=== PATIENT | male | born 1985 | race African-American/Black ===

== ENCOUNTER 2019-01-27 12:14 | Emergency (ER) | payer SELFPAY ==
[~2019-01-27] VITALS: Ht 175.3 cm; Wt 72.6 kg
[2019-01-27 12:54] VITALS: BP 138/79
--- NOTE | 2019-01-27 13:15 | PHYS DOC ---
Past Medical History Past Medical History: No Pertinent History Past Surgical History: Other Additional Past Surgical Histo: JAW SURGERY Alcohol Use: Occasionally Drug Use: Cocaine, Marijuana Adult General Chief Complaint Chief Complaint: SEXUALLY TRANSMITTED DISEASE HPI HPI Patient is a 33 year old AA laith who presents to the emergency department with complaints of dysuria and abnormal green discharge from his penis for the last week. Patient reports concern about possible sexually transmitted infection. He also states he has had a cough with green sputum and nasal congestion for about the last week. He denies any fever, shortness of breath, wheezing, ear pain, nausea, vomiting, diarrhea, rash, or headache. Patient states that his throat has felt sore at times, he denies any difficulty swallowing. He currently rates the discomfort in his penis as 8 out of 10 on the pain scale after urinating he describes it as burning. All other ROS is neg unless otherwise noted in HPI. Review of Systems Review of Systems See Above Allergies Allergies Allergies Coded Allergies Type Severity Reaction Last Updated Verified No Known Drug Allergies 08/31/14 No Physical Exam Physical Exam See Above Constitutional: Well developed, well nourished, no acute distress, non-toxic appearance. [] HENT: Normocephalic, atraumatic, bilateral external ears normal, posterior pharynx normal oropharynx moist, no oral exudates, nose normal. [] Eyes: PERRLA, EOMI, conjunctiva normal, no discharge. [] Neck: Normal range of motion, no tenderness, supple, no stridor. [] Cardiovascular:Heart rate regular rhythm, no murmur [] Lungs & Thorax: Bilateral breath sounds clear to auscultation [] Skin: Warm, dry, no erythema, no rash. [] Back: No CVA tenderness. [] Extremities: No cyanosis, ROM intact, no edema. [] Neurologic: Alert and oriented X 3, no focal deficits noted. [] Psychologic: Affect normal, judgement normal, mood normal. [] Current Patient Data Vital Signs Vital Signs Date Time Temp Pulse Resp B/P (MAP) Pulse Ox O2 Delivery O2 Flow Rate FiO2 01/27/19 12:54 98.1 73 16 138/79 (98) 99 Room Air 98.1 EKG EKG [] Radiology/Procedures Radiology/Procedures [] Course & Med Decision Making Course & Med Decision Making Pertinent Labs and Imaging studies reviewed. (See chart for details) dx: medical screening exam A medical screening exam was performed, patient was found to have no emergent medical condition. The plan of care would've included labs and prophylactic antibiotics. Advised the patient that he can obtain complete STI screening at the local health department. However, the patient eloped after talking with registration. [] [] Dragon Disclaimer Dragon Disclaimer This electronic medical record was generated, in whole or in part, using a voice recognition dictation system. Departure Departure Impression: Primary Impression: Encounter for medical screening examination Disposition: HOME, SELF-CARE (pt eloped after speaking with registration) Condition: STABLE Referrals: NO PCP (PCP) Patient Instructions: Medical Screening Exam YUE OTT [employer]ER Jan 27, 2019 13:15
== END 2019-01-27 14:48 | disposition home or self-care (01) ==
LOC: ER 12:14
DX: R30.0 Dysuria (principal); N48.89 Other specified disorders of penis; F12.90 Cannabis use, unspecified, uncomplicated; F14.90 Cocaine use, unspecified, uncomplicated
CPT/HCPCS: 99281